=== PATIENT | female | born 1995 | race Two or more races ===

== ENCOUNTER 2017-03-13 14:46 | Emergency (ER) | payer BC ==
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
== END 2017-03-13 16:34 | disposition home or self-care (01) ==
LOC: ER 14:46
DX: S40.012A Contusion of left shoulder, initial encounter (principal); S80.211A Abrasion, right knee, initial encounter; F17.210 Nicotine dependence, cigarettes, uncomplicated; V49.40XA Driver injured in collision with unspecified motor vehicles in traffic accident, initial encounter